=== PATIENT | female | born 1985 | race African-American/Black ===

== ENCOUNTER 2024-08-24 04:10 | Emergency (ER) | payer SELFPAY ==
[~2024-08-24] VITALS: Ht 160 cm; Wt 81.6 kg
[2024-08-24 04:15] VITALS: BP 123/79; PULSE 101; RESP 16; TEMP 97.8; O2SAT 100
[2024-08-24] MEDS: LIDOCAINE MPF 1% 10 MG/ML VIAL INJ ONE (05:48)
[2024-08-24 06:20] VITALS: BP 123/79; PULSE 101; RESP 16; TEMP 97.8; O2SAT 100
[2024-08-24] MEDS ORDERED: IBUP-2213 PO (06:34)
[2024-08-24] MEDS ORDERED: CEPH-588 PO (06:34)
== END 2024-08-24 06:54 | disposition home or self-care (01) ==
LOC: MED 04:10
DX: L03.115 Cellulitis of right lower limb (principal); L02.415 Cutaneous abscess of right lower limb; R03.0 Elevated blood-pressure reading, without diagnosis of hypertension; F17.200 Nicotine dependence, unspecified, uncomplicated; Z79.899 Other long term (current) drug therapy
CPT/HCPCS: 10060; 99283; J2001